=== PATIENT | female | born 1990 | race Native Hawaiian/Other Pacific Islander ===

== ENCOUNTER 2020-04-21 21:46 | Emergency (ER) | payer OTHER ==
[~2020-04-21] VITALS: Ht 157.5 cm; Wt 83.0 kg
[2020-04-22 00:54] VITALS: BP 114/76; TEMP 98.7
== END 2020-04-22 00:54 | disposition home or self-care (01) ==
LOC: ED 21:46
DX: G43.909 Migraine, unspecified, not intractable, without status migrainosus (principal)
CPT/HCPCS: 80307; 81025; 96372; 99283; J1170; J2550

== ENCOUNTER 2020-10-25 16:41 | Emergency (ER) | payer OTHER ==
[~2020-10-25] VITALS: Ht 157.5 cm; Wt 81.6 kg
[2020-10-25 16:45] VITALS: TEMP 98
[2020-10-25 18:20] VITALS: BP 124/71
== END 2020-10-25 18:21 | disposition home or self-care (01) ==
LOC: ED 16:41
DX: R51.9 Headache, unspecified (principal); Z87.898 Personal history of other specified conditions
CPT/HCPCS: 96372; 99283; J2175; J2405

== ENCOUNTER 2021-08-20 18:27 | Emergency (ER) | payer OTHER ==
[~2021-08-20] VITALS: Ht 157.5 cm; Wt 81.6 kg
[2021-08-20 20:40] VITALS: BP 128/81; TEMP 98.4
== END 2021-08-20 20:45 | disposition home or self-care (01) ==
LOC: ED 18:27
DX: G43.909 Migraine, unspecified, not intractable, without status migrainosus (principal)
CPT/HCPCS: 96372; 99283; J1885; J2270

== ENCOUNTER 2022-11-13 10:18 | Emergency (ER) | payer OTHER ==
[~2022-11-13] VITALS: Ht 157.5 cm; Wt 81.2 kg
[2022-11-13 10:23] VITALS: TEMP 98.2
[2022-11-13 10:47] LABS: PLATELET COUNT 295 K/uL (152-353)
[2022-11-13 10:54] LABS: POTASSIUM 4.5 mmol/L (3.6-5.2)
[2022-11-13 12:01] VITALS: BP 101/68
== END 2022-11-13 12:03 | disposition home or self-care (01) ==
LOC: ED 10:18
PROVIDERS: Family Medicine
DX: G43.909 Migraine, unspecified, not intractable, without status migrainosus (principal)
CPT/HCPCS: 80053; 85027; 96361; 96372; 96374; 96375; 99284; J1885; J2060; J2405; J3030